=== PATIENT | female | born 1995 ===

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

== ENCOUNTER 2017-04-14 08:23 | Day surgery (SDC) | payer MEDICAID ==
[2017-04-08 09:19] VITALS: BMI 22.1
[2017-04-14] MEDS ORDERED: Bupivacaine 0.5% Inj(30mL) ONE (09:50)
[2017-04-14] MEDS ORDERED: Lidocaine 1% Inj (20ml) ONE (09:50)
[2017-04-14] MEDS ORDERED: Propofol 10 mg/ml Inj (20 ML) ONE (09:55)
[2017-04-14] MEDS ORDERED: Midazolam 2 MG/2 ML VIAL ONE (09:55)
[2017-04-14] MEDS ORDERED: Lactated Ringer's 1,000 ML IV SCH (10:30)
--- NOTE | 2017-04-14 11:09 | PCM.SURG1 ---
Surgeon's Initial Post Op Note - Surgeon's Notes Surgeon: Dr. Hurd Transferrer: Dr. Selby PGY1, Dr. Treviño PGY1 Type of Anesthesia: IV Sedation Pre-Operative Diagnosis: Left Thyroid nodule Operative Findings: see op note Post-Operative Diagnosis: as above Operation Performed: Fine needle aspiration, core needle biopsy of thyroid Specimen/Specimens Removed: thyroid tissue Estimated Blood Loss: EBL {In ML}: 3 Blood Products Given: N/A Drains Used: No Drains Post-Op Condition: Good Date of Surgery/Procedure: 04/14/17 Time of Surgery/Procedure: 11:09
[2017-04-14] MEDS ORDERED: Oxycodone/Acetaminophen 5/325 mg Tab PO ONE (11:12)
[2017-04-14 11:57] VITALS: RESP 18; TEMP 98.1; O2SAT 98
[2017-04-14 12:20] VITALS: BP 106/62; PULSE 89
--- NOTE | 2017-04-20 18:10 | OP ---
PROCEDURE DATE: 04/14/2017 She is admitted and operated on 04/14/2017, the room is [facility]. PREOPERATIVE DIAGNOSIS: Left thyroid nodule 1.2 cm. POSTOPERATIVE DIAGNOSIS: Left thyroid nodule 1.2 cm. PATHOLOGY: Pending. PROCEDURE: 1. On 04/14/2017 is fine needle aspiration of the thyroid nodule. 2. Conversion to a left thyroid core biopsy. SURGEON: Alvin Hurd MD SLIP MAKER: Dr. Bal DO, PGY-1. FLUID PUMP OPERATOR: Dr. Elizondo. TYPE OF ANESTHESIA: MAC-Marcaine 0.5-5 mL. OPERATIVE INDICATIONS: The patient is a 22-year-old [place] female with an asymptomatic 1.2 cm nodule in her left thyroid lobe. This was examined by her private physician who felt the lesion and had ultrasound confirming the diagnosis. The patient was referred to the surgeon for evaluation and recommendations. The patient was advised to undergo fine needle aspiration and possible core biopsy. The patient, at the initial examination, was not totally willing to undergo neck exploration and removal of the nodule and the chances of this being a malignancy were considered less than 10% at this point. Risk, benefits, and the alternatives with their anticipated outcomes were discussed with the patient and she signs the informed consent. OPERATIVE NOTE: The patient was brought to the operating room, undergoes timeout procedure and is placed on the table in a semi-Jordan's position with the shoulders elevated on a bolster pillow and the head hyper extended. Intravenous sedation and oxygenation monitoring was provided by the anesthesiologist and the area of the neck is prepped with Hibiclens and aseptically draped. The ultrasound-guided fine needle aspiration is performed with 6 lines prepared for the pathologist and they were submitted immediately upon drained while in the operating room. Pressure was maintained on the site for several minutes to control any hemostasis needed. The pathologist did return and requested more samples or core biopsy if possible. The area was infiltrated with the bupivacaine and an incision made with an 11 Scalpel and the 16-gauge needle is inserted into the thyroid nodule on the sonographic guidance and two core biopsies taken and submitted immediately fresh to the pathologist. Once again pressure was maintained for 5 minutes and a Band-Aid placed over same and the patient is awakened and transported to the recovery room in a satisfactory condition. Sponge, instrument, and suture counts were verified as correct at the end of the procedure. Alvin Hurd MD [facility] # [id number]
== END 2017-04-14 12:40 | disposition home or self-care (01) ==
LOC: SDS 08:23 → EDSTATUS 10:00 → SDS 12:40
PROVIDERS: ATTEND Surgery
DX: E04.1 Nontoxic single thyroid nodule (principal); F31.9 Bipolar disorder, unspecified
CPT/HCPCS: 60100; 84703; 88173; 88305; J2001; J2250; J2405; J2704; J3010; J7030; J7120 ×2